=== PATIENT | female | born 2000 | race Caucasian/White ===

== ENCOUNTER 2022-01-22 02:46 | Emergency (ER) | payer OTHER ==
[~2022-01-22] VITALS: Ht 157.5 cm; Wt 112.0 kg
[2022-01-22 02:54] VITALS: BP 152/113
[2022-01-22] MEDS ORDERED: OFLO5DRO4 RIGHT EAR (03:34)
== END 2022-01-22 03:53 | disposition home or self-care (01) ==
LOC: ER 03:16
DX: H60.91 Unspecified otitis externa, right ear (principal)
CPT/HCPCS: 99283